=== PATIENT | male | born 1975 | race American Indian/Alaskan Native ===

== ENCOUNTER 2017-05-02 07:43 | Day surgery (SDC) | payer BC ==
[2017-04-29 14:28] VITALS: BMI 48.8
[2017-05-02 08:43] LABS: BLOOD UREA NITROGEN 12 mg/dL (7-21); CALCIUM 8.4 mg/dL (8.4-10.5); CARBON DIOXIDE 27 mmol/L (21-33); CHLORIDE 106 mmol/L (98-107); CHOLESTEROL 144 mg/dL (130-200); GFR AFRICAN-AMERICAN > 60; GLUCOSE,RANDOM 117 mg/dL (70-110); POTASSIUM 3.7 mmol/L (3.6-5.0); SODIUM 140 mmol/L (132-148)
[2017-05-02 08:44] LABS: BASO # 0.01 K/mm3 (0.0-2.0); BASO % 0.2 % (0.0-3.0); EOS # 0.2 (0.0-0.7); EOS % 3.7 % (1.5-5.0); GRAN # 2.93 (1.4-6.5); GRAN % 53.9 % (50.0-68.0); LYMPH # 1.8 (1.2-3.4); LYMPH % 33.5 % (22.0-35.0); MEAN CELL VOLUME 84.2 fl (80.0-105.0); MEAN CORPUSCULAR HEMOGLOBIN 28.3 pg (25.0-35.0); MEAN CORPUSCULAR HGB CONC 33.7 g/dl (31.0-37.0); MEAN PLATELET VOLUME 11.5 fl (7.0-11.0); MONO # 0.5 (0.1-0.6); MONO % 8.7 % (1.0-6.0); RED CELL DISTRIBUTION WIDTH 13.5 % (11.5-14.5); WHITE BLOOD COUNT 5.4 10^3/ul (4.5-11.0)
[2017-05-02 08:51] LABS: INR 0.97 (0.93-1.08)
[2017-05-02] MEDS ORDERED: Lidocaine 2% Inj (20ml) ONE (11:03)
[2017-05-02] MEDS ORDERED: Midazolam 2 MG/2 ML VIAL ONE ×2 (11:04→11:07)
--- NOTE | 2017-05-02 11:15 | CARD ---
APPROVED REPORT EKG Measurement Heart [id number] <Conclusion> Sinus bradycardia Left ventricular hypertrophy with QRS widening Abnormal ECG
[2017-05-02 12:04] VITALS: TEMP 97.3
[2017-05-02] MEDS ORDERED: Sodium Chloride 0.9% 1,000 ML IV SCH (13:00)
[2017-05-02 13:05] VITALS: O2SAT 100
[2017-05-02 16:28] VITALS: BP 121/67; PULSE 60; RESP 19
--- NOTE | 2017-05-02 19:25 | CARDCATH ---
PROCEDURE DATE: 05/02/2017 HISTORY The patient is a 41-year-old male, who was sent here by [employer] [facility] with report of an abnormal stress test performed at [facility]. The patient suffers from accelerated hypertension and hypercholesterolemia. PROCEDURE Left heart catheterization with coronary arteriography and left ventriculogram. The right femoral artery was cannulated with a 6-Serbian sheath. There were no complications. Findings on catheterization revealed a left ventricle that was mildly dilated with an EF of approximately 50%. His coronary anatomy revealed a right dominant circulation. The RCA was found to be unremarkable. The left main artery was unremarkable. The LAD and diagonal vessels revealed intimal irregularities without significant stenoses. Circumflex artery and obtuse marginal branches were free of significant disease. Angio-Seal was used to close the femoral artery site. The patient tolerated the procedure well. In summary, the procedure revealed nonobstructive CAD. Low normal LV function is noted. Given these findings, the patient's accelerated hypertension and is beginning to exert its effect on the patient's left ventricle. His cardiac his cardiac catheterization of nonobstructive CAD would require that the patient undergo a strict cardiac risk reduction program with weight loss and strict control of his blood pressure. Juan Jose Rizzo MD
== END 2017-05-02 16:29 | disposition home or self-care (01) ==
LOC: CATH 07:43
PROVIDERS: ATTEND Internal Medicine Cardiovascular Disease
DX: I25.10 Atherosclerotic heart disease of native coronary artery without angina pectoris (principal); I10 Essential (primary) hypertension; E78.00 Pure hypercholesterolemia, unspecified
CPT/HCPCS: 36415; 80048; 80061; 85025; 85610; 85730; 86850; 86900; 93005; 93458; 99152; C1760; C1769; C2629; J1644; J2250; J3010; J7030; J7040; Q9967